=== PATIENT | female | born 1995 | race Two or more races ===

== ENCOUNTER 2018-06-06 05:22 | Inpatient (IN) | payer MEDICAID ==
--- NOTE | 2018-06-01 10:59 | PCM.LDHP ---
L&D History of Present Illness - General Date of Service: 06/01/18 Admit Problem/Dx: Admission Diagnosis/Problem Admission Diagnosis/Problem Source of Information: Patient History Limitations: Reports: No Limitations - History of Present Illness Introduction:: 22-year-old 011 ANGELINA 06/05/18 plan repeat Tuesday06/06/18 at estimated gestational age 40 weeks and 1 day. GBS negative. Blood type O-positive, antibody screen negative. On 11/14/17 hemoglobin hematocrit 12.9 and 37.4 platelets 172,000. Pap smear negative. Rubella immune, RPR nonreactive, urine culture normal no growth, hepatitis B surface antigen and HIV negative. GC chlamydia probe negative. On 03/15/18 hemoglobin/hematocrit 11.5/35.1 platelets 193,000, diabetes screen 1 hour 114. On 05/18/18 group B strep negative. LMP ANGELINA 06/05/18 Ultrasound obtained on 10/31/17 at 9 weeks 0 days no complicating process ANGELINA 06/05 Improves with: Reports: None Worsens with: Reports: None Associated Symptoms: Reports: N - Related Data Allergies/Adverse Reactions: Allergies Allergy/AdvReac Type Severity Reaction Status Date / Time No Known Allergies Allergy Verified 03/06/18 13:30 H&P Review of Systems - Review of Systems: Review Of Systems: See Below General: Reports: No Symptoms HEENT: Reports: No Symptoms Pulmonary: Reports: No Symptoms Cardiovascular: Reports: No Symptoms Gastrointestinal: Reports: No Symptoms Genitourinary: Reports: No Symptoms Musculoskeletal: Reports: No Symptoms Skin: Reports: No Symptoms Psychiatric: Reports: No Symptoms Neurological: Reports: No Symptoms Hematologic/Lymphatic: Reports: No Symptoms Immunologic: Reports: No Symptoms L&D Exam - Exam Exam: See Below - OB Specific Fundal Height In cm: 39 Movement: Active Heart Tones: Present Heart Tones per Min: 144 Heart Rate (FHR) Variability: Moderate (6-25 bmp) Presentation: Vertex - Exam General: Alert, Oriented HEENT: Conjunctiva Clear, Mucosa Moist & [place], PERRLA Neck: Supple, Trachea Midline Lungs: Clear to Auscultation, Normal Respiratory Effort Cardiovascular: Regular Rate, Regular Rhythm GI/Abdominal Exam: Normal Bowel Sounds, Soft, Non-Tender Rectal Exam: Normal Rectal Tone Genitourinary: Normal external exam Back Exam: Normal Inspection, Full Range of Motion Extremities: Normal Inspection, Normal Range of Motion, Non-Tender, No Pedal Edema, Normal Capillary Refill Skin: Warm, Dry, Intact Neurological: Reflexes Equal Bilateral Psychiatric: Alert, Normal Affect, Normal Mood - Problem List (1) 39 weeks gestation of SNOMED Code(s): 54067733 ICD Code: Z3A.39 - 39 WEEKS GESTATION OF Status: Acute (2) History of delivery, antepartum SNOMED Code(s): 123586466, 457698297 ICD Code: O34.219 - MATERNAL CARE FOR UNSP TYPE SCAR FROM PREVIOUS DEL Status: Acute Problem List Initiated/Reviewed/Updated: No Assessment/Plan Comment:: When repeat Tuesday06/06/18 Nothing by mouth after midnight 06/05? Postop visit scheduled for Tuesday06/20/18.
[~2018-06-06 05:22] MED LIST: Citric Acid/Sodium Citrate Solution 30 ML Cup PO ONE; Lactated Ringers 1,000 ML IV SCH; Metoclopramide 10 MG/2 ML SDV IVPUSH ONE; Sodium Chloride 0.9% 10 ML Syringe FLUSH PRN; ceFAZolin 2 GM in Premix Bag 1 BAG IV ONE
[2018-06-06] MEDS ORDERED: Morphine PF 1 MG/ML Amp ONE (06:42)
--- NOTE | 2018-06-06 06:54 | PCM.PREANE ---
Preanesthetic Assessment - Anesthesia/Transfusion/Family Hx Anesthesia History: Prior Anesthesia Reaction Transfusion History: No Prior Transfusion(s) - Review of Systems General: No Symptoms Pulmonary: No Symptoms Cardiovascular: No Symptoms Gastrointestinal: No Symptoms Neurological: No Symptoms Other: Reports: None - Physical Assessment NPO Status Date: 06/05/18 NPO Status Time: 22:00 Height: 1.57 m Weight: 76.657 kg ASA Class: 2 Mental Status: Alert & Oriented x3 Dentition: Reports: Normal Dentition Thyro-Mental Finger Breadths: 3 Mouth Opening Finger Breadths: 3 ROM/Head Extension: Full Lungs: Clear to Auscultation Cardiovascular: Regular Rate - Lab Values: Laboratory Last Values WBC 8.09 K/mm3 (3.98-10.04) 06/06/18 05:50 RBC 4.11 M/mm3 (3.98-5.22) 06/06/18 05:50 Hgb 11.9 gm/L (11.2-15.7) 06/06/18 05:50 Hct 36.2 % (34.1-44.9) 06/06/18 05:50 MCV 88.1 fl (79.4-94.8) 06/06/18 05:50 MCH 29.0 pg (25.6-32.2) 06/06/18 05:50 MCHC 32.9 g/dl (32.2-35.5) 06/06/18 05:50 RDW Std Deviation 44.4 fL (36.4-46.3) 06/06/18 05:50 Plt Count 165 K/mm3 (182-369) L 06/06/18 05:50 MPV 12.5 fl (9.4-12.3) H 06/06/18 05:50 Neut % (Auto) 64.2 % (34.0-71.1) 06/06/18 05:50 Lymph % (Auto) 24.8 % (19.3-51.7) 06/06/18 05:50 [place] % (Auto) 9.5 % (4.7-12.5) 06/06/18 05:50 Eos % (Auto) 0.9 (0.7-5.8) 06/06/18 05:50 Baso % (Auto) 0.2 % (0.1-1.2) 06/06/18 05:50 Neut # (Auto) 5.19 K/mm3 (1.56-6.13) 06/06/18 05:50 Lymph # (Auto) 2.01 K/mm3 (1.18-3.74) 06/06/18 05:50 [place] # (Auto) 0.77 K/mm3 (0.24-0.36) H 06/06/18 05:50 Eos # (Auto) 0.07 K/mm3 (0.04-0.36) 06/06/18 05:50 Baso # (Auto) 0.02 K/mm3 (0.01-0.08) 06/06/18 05:50 Blood Type O POSITIVE 06/06/18 05:50 Gel Antibody Screen Negative 06/06/18 05:50 - Allergies Allergies/Adverse Reactions: Allergies Allergy/AdvReac Type Severity Reaction Status Date / Time No Known Allergies Allergy Verified 03/06/18 13:30 - Acknowledgements Anesthesia Type Planned: Spinal Pt an Appropriate Candidate for the Planned Anesthesia: Yes Alternatives and Risks of Anesthesia Discussed w Pt/Guardian: Yes Pt/Guardian Understands and Agrees with Anesthesia Plan: Yes Additional Comments: Consent signed with analytics senior manager PreAnesthesia Questionnaire [employer] History: Reports: - Infectious Disease History Infectious Disease History: Reports: Hepatitis A - Past Surgical History Female Surgical History: Reports: Section - SUBSTANCE USE Smoking Status *Q: Never Smoker Second Hand Smoke Exposure: No Recreational Drug Use History: No - CURRENT (IN HOUSE) MEDS Current Meds: Current Medications Lactated Ringer's (Ringers, Lactated) 1,000 mls @ 125 mls/hr IV ASDIRECTED [facility] Last Admin: 06/06/18 06:00 Dose: 125 mls/hr Sodium Chloride (Saline Flush) 10 ml FLUSH ASDIRECTED PRN PRN Reason: Keep Vein Open Discontinued Medications Citric Acid/Sodium Citrate (Bicitra Solution) 30 ml PO ONETIME ONE Stop: 06/06/18 04:56 Last Admin: 06/06/18 06:23 Dose: 30 ml Cefazolin Sodium/Dextrose 2 gm (/ Premix) 50 mls @ 100 mls/hr IV ONETIME ONE Stop: 06/06/18 05:24 Metoclopramide HCl (Reglan) 10 mg IVPUSH ONETIME ONE Stop: 06/06/18 04:56 Last Admin: 06/06/18 06:23 Dose: 10 mg Morphine Sulfate (Duramorph Pf) Confirm Administered Dose 1 mg .ROUTE .STK-MED ONE Stop: 06/06/18 06:43
[2018-06-06] MEDS ORDERED: Bupivacaine 0.5% 30 ML SDV ONE (07:02)
[2018-06-06] MEDS ORDERED: Oxytocin 10 Units/1 ML SDV ONE ×2 (08:23→08:26)
[2018-06-06] MEDS ORDERED: Bupivacaine 0.75%/D5W 2 ML Amp ONE (08:23)
[2018-06-06] MEDS ORDERED: Lactated Ringers 1,000 ML ONE ×2 (08:27)
[2018-06-06] MEDS ORDERED: ceFAZolin 1 GM Vial ONE (08:48)
--- NOTE | 2018-06-06 08:51 | PCM.OPNOTE ---
- General Post-Op/Procedure Note Date of Surgery/Procedure: 06/06/18 Operative Procedure(s): low segment transverse section repeat Pre Op Diagnosis: [id number], prior section unknown type uterine scar Post-Op Diagnosis: Same plus dense thick adhesions uterus to abdomenal wall Anesthesia Technique: Spinal Primary Surgeon: Yuriy Lee Secondary Surgeon: Landon Langston Anesthesia Provider: Kedar Gabriel Reason Finish Repair Worker Was Necessary: Difficulty of surgery, retraction, decrease comorbidity and mortality. Role of Finish Repair Worker: Difficulty of surgery, retraction, decrease comorbidity and mortality. Fluid Replacement, Intraop: 2,600 Output, Urine Amount: 100 EBL in mLs: 250 Drain/Tube Comments:: Shea Complications: None Condition: Good Free Text/Narrative:: Patient was transported to the operating room and placed under spinal anesthesia in the supine position with a wedge under the right hip and right flank. SCDs in place and functioning prior surgery. Ancef 2 g given intravenously prior surgery. Shea catheter placed gravity drainage. Patient prepared and draped in a sterile fashion. Timeout performed confirming name, date of , procedure as repeat section. Adequate level of anesthesia was confirmed, was brought to the operating room. Injecting the area of the planned Pfannenstiel incision with 20 mL of 0.5% Marcaine without epinephrine Pfannenstiel incision was made and care was sharp section to into the anterior fascia peritoneal cavity was entered. There were dense adhesions 2-3 cm in width from the uterus to the anterior abdominal wall on the superior one half of the uterus. Bladder flap was created and pushed caudad. Low segment transverse was performed. Female liveborn delivered on Tuesday06/06/18 end 0811 hrs. Apgars 9/9 vacuum extraction assisted for delivery 10 seconds in the green. Weight 30/3/90 grams 7 lbs[address] Sutton cared for the . Cord blood collected from normal three-vessel cord. The placenta was removed manually. Endometrial cavity inspected. Due to the dense adhesions the uterus could not be exteriorized. The low segment transverse incision closed in 2 layers first layer running locking suture of 0 Monocryl. Second layer horizontal imbricating suture modified Lembert type. Sponge needle pack asthma sharp count correct times one on closure the uterus and 2 on closure of the abdominal cavity. The abdomen was closed with #1 PDS running suture for the anterior fascia. The skin was closed with subcuticular 30 Lukasz needle Dermabond Preneo applied. Clots were cleaned from the vagina at the end procedure. Patient was transported postanesthesia care unit in satisfactory condition. No blood transfusions required.
--- NOTE | 2018-06-06 08:56 | PCM.POSTAN ---
POST ANESTHESIA ASSESSMENT - MENTAL STATUS Mental Status: Alert, Oriented - VITAL SIGNS Pulse Rate: 83 SaO2: 99 Resp Rate: 18 Blood Pressure: 107/62 Temperature: 97.9 F - RESPIRATORY Respiratory Status: Respiratory Rate WNL, Airway Patent, O2 Saturation Stable - CARDIOVASCULAR CV Status: Pulse Rate WNL, Blood Pressure Stable - GASTROINTESTINAL GI Status: No Symptoms - PAIN Pain Score: 0 - POST OP HYDRATION Hydration Status: Adequate & Stable
[2018-06-06] MEDS ORDERED: Ketorolac 30 MG/ML SDV IVPUSH SCH (09:00)
[2018-06-06] MEDS ORDERED: Sodium Chloride 0.9% 10 ML Syringe FLUSH PRN (14:34)
[2018-06-06] MEDS ORDERED: Acetaminophen 325 MG Tab PO PRN (14:34)
[2018-06-06] MEDS ORDERED: Docusate Sodium 100 MG Cap PO PRN (14:34)
[2018-06-06] MEDS ORDERED: diphenhydrAMINE 50 MG/ML SDV IVPUSH PRN (14:34)
[2018-06-06] MEDS ORDERED: Ondansetron 4 MG/2 ML SDV IV PRN (14:34)
[2018-06-06] MEDS ORDERED: Naloxone 0.4 MG/ML SDV IVPUSH PRN (14:34)
[2018-06-06] MEDS ORDERED: Dextrose 5%-Lactated Ringers 1,000 ML IV SCH (14:34)
[2018-06-06] MEDS ORDERED: Lanolin 100% Cream 7 GM Tube TOP PRN (14:34)
[2018-06-06] MEDS ORDERED: ePHEDrine 50 MG/ML SDV IVPUSH PRN (14:34)
[2018-06-06] MEDS: Ketorolac 30 MG/ML SDV IVPUSH SCH ×2 (14:52→21:20)
[2018-06-06] MEDS: Simethicone 80 MG Tab.Chew PO SCH ×3 (14:59→23:07)
--- NOTE | 2018-06-06 16:25 | PCM.SN ---
- Free Text/Narrative Note: Doing well, no heavy vaginal bleeding. No leg cramping. Incision normal. Uterus is involuting normally.
[2018-06-06] MEDS ORDERED: Diphtheria,Pertussis(Acell),Tetanus Vaccine 0.5 ML SDV IM ONE (22:35)
[2018-06-07] MEDS: Ketorolac 30 MG/ML SDV IVPUSH SCH (03:18)
--- NOTE | 2018-06-07 08:17 | PCM48HPAN ---
Post Anesthesia Note - EVALUATION WITHIN 48HRS OF ANESTHETIC Vital Signs in Normal Range: Yes Patient Participated in Evaluation: Yes Respiratory Function Stable: Yes Airway Patent: Yes Cardiovascular Function Stable: Yes Hydration Status Stable: Yes Pain Control Satisfactory: Yes Nausea and Vomiting Control Satisfactory: Yes Mental Status Recovered: Yes Pulse Rate: 82 Resp Rate: 16 Temperature: 97.3 F Blood Pressure: 104/59 - COMMENTS/OBSERVATIONS Free Text/Narrative:: Patient on her postoperative day 1. Patient has stated understanding about possible backaches following spinal anesthesia. Patient denies any headache, lightheadedness or backache at this time. Rates her postoperative pain as 2-3/10. Ambulating, no difficulty urinating.
--- NOTE | 2018-06-07 08:26 | PCM.SN ---
- Free Text/Narrative Note: day one/postop day 1 No chest congestion. Uterus involuting normally. No abdominal pain. Incision appears normal. No drainage from incision. No heavy vaginal bleeding. No leg cramping Probably home tomorrow morning. Dr. Langston will be covering patient after 1700 hrs. this evening.
[2018-06-07] MEDS: Simethicone 80 MG Tab.Chew PO SCH ×4 (08:46→22:20)
[2018-06-07] MEDS: Acetaminophen/oxyCODONE 325-5 MG Tab PO PRN ×2 (08:49→20:14)
[2018-06-07] MEDS: Ibuprofen 600 MG Tab PO PRN ×2 (15:32→22:20)
[2018-06-08] MEDS: Acetaminophen/oxyCODONE 325-5 MG Tab PO PRN ×2 (03:01→11:54)
--- NOTE | 2018-06-08 08:16 | PCM.SN ---
- Free Text/Narrative Note: Post Operative Progress Note POD #2 Subjective: Doing well overall. Ambulating without difficulty. Lochia minimal. Voiding without difficulty. Passing flatus but has not had a bowel movement. Tolerating regular diet without nausea or vomiting. Pain overall controlled with oral medications. Breast and bottle feeding with minimal difficulty. Objective: Vitals: Vital Signs - 24 hr 06/07/18 06/07/18 06/07/18 08:17 12:26 20:07 Temperature 36.3 C 36.8 C 37.1 C Pulse, 82 82 Peripheral Respiratory 16 16 19 Rate Blood Pressure 104/59 L 109/62 90/59 L O2 Sat by Pulse Oximetry 06/07/18 06/08/18 21:43 03:06 Temperature 36.6 C Pulse, 93 84 Peripheral Respiratory 16 Rate Blood Pressure 112/79 O2 Sat by Pulse 97 97 Oximetry Physical Exam General: Alert and oriented, no acute distress Lungs: Clear to auscultation bilaterally Heart: Regular rate and rhythm Abdomen: Soft, minimal appropriate tenderness, non-distended, fundus midline, nontender and below the umbilicus Incision: Clean, dry and intact, no erythema, bleeding or drainage with Prineo dressing in place Extremities: No edema Labs: Laboratory Tests 06/06/18 06/06/18 06/06/18 Range/Units 05:50 05:50 05:50 WBC 8.09 (3.98-10.04) K/mm3 RBC 4.11 (3.98-5.22) M/mm3 Hgb 11.9 (11.2-15.7) gm/L Hct 36.2 (34.1-44.9) % MCV 88.1 (79.4-94.8) fl MCH 29.0 (25.6-32.2) pg MCHC 32.9 (32.2-35.5) g/dl RDW Std Deviation 44.4 (36.4-46.3) fL Plt Count 165 L (182-369) K/mm3 MPV 12.5 H (9.4-12.3) fl Neut % (Auto) 64.2 (34.0-71.1) % Lymph % (Auto) 24.8 (19.3-51.7) % [place] % (Auto) 9.5 (4.7-12.5) % Eos % (Auto) 0.9 (0.7-5.8) Baso % (Auto) 0.2 (0.1-1.2) % Neut # (Auto) 5.19 (1.56-6.13) K/mm3 Lymph # (Auto) 2.01 (1.18-3.74) K/mm3 [place] # (Auto) 0.77 H (0.24-0.36) K/mm3 Eos # (Auto) 0.07 (0.04-0.36) K/mm3 Baso # (Auto) 0.02 (0.01-0.08) K/mm3 RPR Non-reactive (NONREACTIVE) Blood Type O POSITIVE Gel Antibody Screen Negative 06/07/18 Range/Units 06:55 WBC 7.16 (3.98-10.04) K/mm3 RBC 3.71 L (3.98-5.22) M/mm3 Hgb 10.5 L (11.2-15.7) gm/L Hct 32.6 L (34.1-44.9) % MCV 87.9 (79.4-94.8) fl MCH 28.3 (25.6-32.2) pg MCHC 32.2 (32.2-35.5) g/dl RDW Std Deviation 43.9 (36.4-46.3) fL Plt Count 146 L (182-369) K/mm3 MPV 11.9 (9.4-12.3) fl Neut % (Auto) 66.9 (34.0-71.1) % Lymph % (Auto) 23.6 (19.3-51.7) % [place] % (Auto) 8.5 (4.7-12.5) % Eos % (Auto) 0.8 (0.7-5.8) Baso % (Auto) 0.1 (0.1-1.2) % Neut # (Auto) 4.78 (1.56-6.13) K/mm3 Lymph # (Auto) 1.69 (1.18-3.74) K/mm3 [place] # (Auto) 0.61 H (0.24-0.36) K/mm3 Eos # (Auto) 0.06 (0.04-0.36) K/mm3 Baso # (Auto) 0.01 (0.01-0.08) K/mm3 RPR (NONREACTIVE) Blood Type Gel Antibody Screen ASSESSMENT: 22-year-old female G 2P 2001 s/p repeat section POD #2 for history of section, complicated by language barrier and uterine adhesions during surgery PLAN: Doing well Breast and bottle feeding with minimal difficulty. Assist as needed Incision healing well. Continue to keep clean and dry. Lochia minimal. Continue to monitor for appropriate lochia. Continue routine post-operative care Anticipate discharge home today Landon Langston MD 8:16 AM 06/08/2018
--- NOTE | 2018-06-08 08:20 | PCM.DCSUM1 ---
Discharge Summary - Hospital Course Free Text/Narrative:: Patient was transported to the operating room and placed under spinal anesthesia in the supine position with a wedge under the right hip and right flank. SCDs in place and functioning prior surgery. Ancef 2 g given intravenously prior surgery. Shea catheter placed gravity drainage. Patient prepared and draped in a sterile fashion. Timeout performed confirming name, date of , procedure as repeat section. Adequate level of anesthesia was confirmed, was brought to the operating room. Injecting the area of the planned Pfannenstiel incision with 20 mL of 0.5% Marcaine without epinephrine Pfannenstiel incision was made and care was sharp section to into the anterior fascia peritoneal cavity was entered. There were dense adhesions 2-3 cm in width from the uterus to the anterior abdominal wall on the superior one half of the uterus. Bladder flap was created and pushed caudad. Low segment transverse was performed. Female liveborn delivered on Tuesday06/06/18 end 0811 hrs. Apgars 9/9 vacuum extraction assisted for delivery 10 seconds in the green. Weight 30/3/90 grams 7 lbs[address] Sutton cared for the . Cord blood collected from normal three-vessel cord. The placenta was removed manually. Endometrial cavity inspected. Due to the dense adhesions the uterus could not be exteriorized. The low segment transverse incision closed in 2 layers first layer running locking suture of 0 Monocryl. Second layer horizontal imbricating suture modified Lembert type. Sponge needle pack asthma sharp count correct times one on closure the uterus and 2 on closure of the abdominal cavity. The abdomen was closed with #1 PDS running suture for the anterior fascia. The skin was closed with subcuticular 30 Lukasz needle Dermabond Preneo applied. Clots were cleaned from the vagina at the end procedure. Patient was transported postanesthesia care unit in satisfactory condition. No blood transfusions required. HPI Initial Comments: Patient was transported to the operating room and placed under spinal anesthesia in the supine position with a wedge under the right hip and right flank. SCDs in place and functioning prior surgery. Ancef 2 g given intravenously prior surgery. Shea catheter placed gravity drainage. Patient prepared and draped in a sterile fashion. Timeout performed confirming name, date of , procedure as repeat section. Adequate level of anesthesia was confirmed, was brought to the operating room. Injecting the area of the planned Pfannenstiel incision with 20 mL of 0.5% Marcaine without epinephrine Pfannenstiel incision was made and care was sharp section to into the anterior fascia peritoneal cavity was entered. There were dense adhesions 2-3 cm in width from the uterus to the anterior abdominal wall on the superior one half of the uterus. Bladder flap was created and pushed caudad. Low segment transverse was performed. Female liveborn delivered on Tuesday06/06/18 end 0811 hrs. Apgars 9/9 vacuum extraction assisted for delivery 10 seconds in the green. Weight 30/3/90 grams 7 lbs[address] Sutton cared for the . Cord blood collected from normal three-vessel cord. The placenta was removed manually. Endometrial cavity inspected. Due to the dense adhesions the uterus could not be exteriorized. The low segment transverse incision closed in 2 layers first layer running locking suture of 0 Monocryl. Second layer horizontal imbricating suture modified Lembert type. Sponge needle pack asthma sharp count correct times one on closure the uterus and 2 on closure of the abdominal cavity. The abdomen was closed with #1 PDS running suture for the anterior fascia. The skin was closed with subcuticular 30 Lukasz needle Dermabond Preneo applied. Clots were cleaned from the vagina at the end procedure. Patient was transported postanesthesia care unit in satisfactory condition. No blood transfusions required. Brief History: Patient was transported to the operating room and placed under spinal anesthesia in the supine position with a wedge under the right hip and right flank. SCDs in place and functioning prior surgery. Ancef 2 g given intravenously prior surgery. Shea catheter placed gravity drainage. Patient prepared and draped in a sterile fashion. Timeout performed confirming name, date of , procedure as repeat section. Adequate level of anesthesia was confirmed, was brought to the operating room. Injecting the area of the planned Pfannenstiel incision with 20 mL of 0.5% Marcaine without epinephrine Pfannenstiel incision was made and care was sharp section to into the anterior fascia peritoneal cavity was entered. There were dense adhesions 2-3 cm in width from the uterus to the anterior abdominal wall on the superior one half of the uterus. Bladder flap was created and pushed caudad. Low segment transverse was performed. Female liveborn delivered on Tuesday06/06/18 end 0811 hrs. Apgars 9/9 vacuum extraction assisted for delivery 10 seconds in the green. Weight 30/3/90 grams 7 lbs[address] Sutton cared for the . Cord blood collected from normal three-vessel cord. The placenta was removed manually. Endometrial cavity inspected. Due to the dense adhesions the uterus could not be exteriorized. The low segment transverse incision closed in 2 layers first layer running locking suture of 0 Monocryl. Second layer horizontal imbricating suture modified Lembert type. Sponge needle pack asthma sharp count correct times one on closure the uterus and 2 on closure of the abdominal cavity. The abdomen was closed with #1 PDS running suture for the anterior fascia. The skin was closed with subcuticular 30 Lukasz needle Dermabond Preneo applied. Clots were cleaned from the vagina at the end procedure. Patient was transported postanesthesia care unit in satisfactory condition. No blood transfusions required. Diagnosis: Stroke: No - Discharge Data Discharge Date: 06/08/18 Discharge Disposition: Home, Self-Care 01 Condition: Good - Discharge Diagnosis/Problem(s) (1) delivery delivered SNOMED Code(s): 461368818 ICD Code: O82 - ENCOUNTER FOR DELIVERY WITHOUT INDICATION Status: Acute Current Visit: Yes (2) Uterus adhesion, delivered, current hospitalization SNOMED Code(s): 074459694 ICD Code: O34.599 - MATERNAL CARE FOR OTH ABNLT OF GRAVID UTERUS, UNSP TRIMESTER; N73.6 - FEMALE PELVIC PERITONEAL ADHESIONS (POSTINFECTIVE) Status: Acute Current Visit: Yes (3) 39 weeks gestation of SNOMED Code(s): 41288042 ICD Code: Z3A.39 - 39 WEEKS GESTATION OF Status: Acute Current Visit: No (4) History of delivery, antepartum SNOMED Code(s): 034321981, 813998530 ICD Code: O34.219 - MATERNAL CARE FOR UNSP TYPE SCAR FROM PREVIOUS DEL Status: Acute Current Visit: No - Patient Summary/Data Operative Procedure(s) Performed: low segment transverse section repeat Complications: None Consults: None Hospital Course: Gwne Moreira was admitted for repeat section. She was taken back to the OR and given spinal injection for anesthesia. She was given Ancef for antibiotic prophylaxis. She was prepped and draped in the normal fashion. On 06/06/2018 she had a vacuum-assisted delivery of a live female at 0811. Apgars of 9 and 9. Weight of 3390 g (7 lbs. 9 oz.). She was closed in a normal fashion. There were no complications with the procedure but patient did have uterine adhesions or prevented exteriorizing the uterus at time of . Please see the operative report for full details. Her post operative course was uneventful. Her pain was well controlled and she had minimal lochia. She was ambulating, tolerating a regular diet and voiding normally. She was passing flatus and has not had a bowel movement. She was breast and bottle feeding. She was afebrile and her hematocrit was 32.6 on POD #1. She desired to be discharged home on the morning of POD #2. Her blood type is O+. - Patient Instructions Diet: Regular Diet as Tolerated Activity: Apply Ice, As Tolerated, No Lifting Over 20 Pounds Activity, Other: Nothing in the vagina for 6 weeks Driving: Do Not Drive (while taking narcotic medications) Showering/Bathing: May Shower Wound/Incision Care: Keep Operative Site/Wound Site Clean and Dry Notify Provider of: Fever, Increased Pain, Swelling and Redness, Drainage, Nausea and/or Vomiting Other/Special Instructions: Contact our office if you have heavy vaginal bleeding enough to soak a pad in less than an hour for several hours. Also call if you have bleeding or pus coming from the incision. - Discharge Plan *PRESCRIPTION DRUG MONITORING PROGRAM REVIEWED*: Yes *COPY OF PRESCRIPTION DRUG MONITORING REPORT IN PATIENT YASEMIN: No (No record of prescriptions in [place] PDMP) Home Medications: Home Meds Acetaminophen/oxyCODONE [Percocet 325-5 MG] 1 - 2 tab PO Q6H PRN #30 tablet [Rx] Docusate Sodium [Colace] 100 mg PO Q12H PRN cap 06/08/18 [Rx] Ibuprofen [Motrin] 600 mg PO Q6H PRN tablet 06/08/18 [Rx] Lanolin [Lansinoh HPA] 1 applic TOP ASDIRECTED PRN tube 06/08/18 [Rx] Patient Handouts: Care After Delivery Referrals: Yuriy Lee MD [Primary Care Provider] - (Follow up in 2 weeks or earlier as needed) - Discharge Summary/Plan Comment DC Time >30 min.: No - Patient Data Vitals - Most Recent: Last Vital Signs Temp 36.6 C 06/08/18 03:06 Pulse 84 06/08/18 03:06 Resp 16 06/08/18 03:06 BP 112/79 06/08/18 03:06 Pulse Ox 97 06/08/18 03:06 Weight - Most Recent: 76.657 kg I&O - Last 24 hours: Intake & Output 06/07/18 06/08/18 06/08/18 22:59 06:59 14:59 Intake Total 180 Balance 180 Med Orders - Current: Current Medications Acetaminophen (Tylenol) 650 mg PO Q4H PRN PRN Reason: mild pain or fever Diphenhydramine HCl (Benadryl) 25 mg IVPUSH Q6H PRN PRN Reason: Itching or Nausea Docusate Sodium (Colace) 100 mg PO Q12H PRN PRN Reason: Constipation Emollient Ointment (Lansinoh Hpa) 0 gm TOP ASDIRECTED PRN PRN Reason: Sore Nipples Ephedrine Sulfate (Ephedrine Sulfate) 5 mg IVPUSH SEECOMMENT PRN PRN Reason: Other Ibuprofen (Motrin) 600 mg PO Q6H PRN PRN Reason: mild pain or fever Last Admin: 06/07/18 22:20 Dose: 600 mg Naloxone HCl (Narcan) 0.1 mg IVPUSH SEECOMMENT PRN PRN Reason: Respiratory Depression Ondansetron HCl (Zofran) 4 mg IV Q8H PRN PRN Reason: Nausea/Vomiting Oxycodone/Acetaminophen (Percocet 325-5 Mg) 1 tab PO Q4H PRN PRN Reason: Pain (moderate 4-6) Last Admin: 06/08/18 03:01 Dose: 1 tab Simethicone (Simethicone) 80 mg PO PCBED FELIX Last Admin: 06/07/18 22:20 Dose: 80 mg Sodium Chloride (Saline Flush) 10 ml FLUSH ASDIRECTED PRN PRN Reason: Keep Vein Open Discontinued Medications Bupivacaine HCl (Marcaine 0.5%) Confirm Administered Dose 30 ml .ROUTE .STK-MED ONE Stop: 06/06/18 07:03 Last Admin: 06/06/18 08:07 Dose: 20 ml Bupivacaine HCl/Dextrose (Marcaine 0.75% Spinal) Confirm Administered Dose 2 ml .ROUTE .[facility] ONE Stop: 06/06/18 08:24 Cefazolin Sodium (Ancef) Confirm Administered Dose 2 gm .ROUTE .[facility] ONE Stop: 06/06/18 08:49 Citric Acid/Sodium Citrate (Bicitra Solution) 30 ml PO ONETIME ONE Stop: 06/06/18 04:56 Last Admin: 06/06/18 06:23 Dose: 30 ml Diphtheria/Tetanus/Acell Pertussis (Adacel) 0.5 ml IM .ONCE ONE Stop: 06/06/18 22:36 Last Admin: 06/06/18 23:04 Dose: 0.5 ml Cefazolin Sodium/Dextrose 2 gm (/ Premix) 50 mls @ 100 mls/hr IV ONETIME ONE Stop: 06/06/18 05:24 Last Admin: 06/07/18 15:42 Dose: Not Given Lactated Ringer's (Ringers, Lactated) 1,000 mls @ 125 mls/hr IV ASDIRECTED [facility] Last Admin: 06/06/18 06:00 Dose: 125 mls/hr Lactated Ringer's (Ringers, Lactated) Confirm Administered Dose 1,000 mls @ as directed .ROUTE .[facility] ONE Stop: 06/06/18 08:28 Lactated Ringer's (Ringers, Lactated) Confirm Administered Dose 1,000 mls @ as directed .ROUTE .[facility] ONE Stop: 06/06/18 08:28 Dextrose/Lactated Ringer's (Dextrose 5%-Lactated Ringers) 1,000 mls @ 125 mls/ hr IV ASDIRECTED [facility] Stop: 06/06/18 22:33 Last Admin: 06/06/18 17:33 Dose: 125 mls/hr Ketorolac Tromethamine (Toradol) 30 mg IVPUSH ONETIME [facility] Stop: 06/06/18 11:30 Last Admin: 06/06/18 09:06 Dose: 30 mg Ketorolac Tromethamine (Toradol) 30 mg IVPUSH Q6H [facility] Stop: 06/07/18 03:01 Last Admin: 06/07/18 03:18 Dose: 30 mg Lidocaine HCl (Xylocaine-Mpf 1%) 5 ml .ROUTE .STK-MED ONE Stop: 06/06/18 08:24 Metoclopramide HCl (Reglan) 10 mg IVPUSH ONETIME ONE Stop: 06/06/18 04:56 Last Admin: 06/06/18 06:23 Dose: 10 mg Morphine Sulfate (Duramorph Pf) Confirm Administered Dose 1 mg .ROUTE .STK-MED ONE Stop: 06/06/18 06:43 Oxytocin (Pitocin) Confirm Administered Dose 20 unit .ROUTE .STK-MED ONE Stop: 06/06/18 08:24 Oxytocin (Pitocin) Confirm Administered Dose 10 unit .ROUTE .STK-MED ONE Stop: 06/06/18 08:27 Sodium Chloride (Saline Flush) 10 ml FLUSH ASDIRECTED PRN PRN Reason: Keep Vein Open
[2018-06-08] MEDS: Ibuprofen 600 MG Tab PO PRN (11:55)
[2018-06-08] MEDS: Simethicone 80 MG Tab.Chew PO SCH (13:12)
== END 2018-06-08 12:00 | disposition home or self-care (01) | DRG 766 ==
LOC: JD.OB 05:22 → INTOOBSV 05:22 → OBSVTOIN 08:11
PROVIDERS: ADMIT Obstetrics & Gynecology; ATTEND Obstetrics & Gynecology
PROC: 6A550ZT Pheresis of Cord Blood Stem Cells, Single (ICD-10-PCS; principal; 2018-06-06)
PROC: 10D00Z1 Extraction of Products of Conception, Low, Open Approach (ICD-10-PCS; principal; 2018-06-06)
PROC: 3E0234Z Introduction of Serum, Toxoid and Vaccine into Muscle, Percutaneous Approach (ICD-10-PCS; 2018-06-06)
DX: O34.211 Maternal care for low transverse scar from previous cesarean delivery (principal); N85.8 Other specified noninflammatory disorders of uterus; Z37.0 Single live birth; O99.89 Other specified diseases and conditions complicating pregnancy, childbirth and the puerperium; N73.6 Female pelvic peritoneal adhesions (postinfective); Z3A.40 40 weeks gestation of pregnancy; Z23 Encounter for immunization
CPT/HCPCS: 01961; 36415; 59025; 85025; 86592; 86850; 86900; 86901; 90471; 90715; 94762; A9270-GY; J0690; J1885; J2274; J2590; J2765; J3490; J7042; J7120